=== PATIENT | female | born 1960 | race Caucasian/White ===

== ENCOUNTER 2017-05-10 16:44 | Emergency (ER) | payer BC ==
--- NOTE | 2017-05-10 17:07 | EDM.PDOC ---
ED HPI GENERAL MEDICAL PROBLEM - General Chief Complaint: Genitourinary Problem Stated Complaint: INFECTION Time Seen by Provider: 05/10/17 17:06 Source of Information: Reports: Patient - History of Present Illness INITIAL COMMENTS - FREE TEXT/NARRATIVE: HISTORY AND PHYSICAL: History of present illness: []Patient with 24 hours of dysuria and frequency with urination No fever nausea vomiting chills sweats Review of systems: As per history of present illness and below otherwise all systems reviewed and negative. Past medical history: As per history of present illness and as reviewed below otherwise noncontributory. Surgical history: As per history of present illness and as reviewed below otherwise noncontributory. Social history: No reported history of drug or alcohol abuse. Family history: As per history of present illness and as reviewed below otherwise noncontributory. Physical exam: HEENT: Atraumatic, normocephalic, pupils reactive, negative for conjunctival pallor or scleral icterus, mucous membranes moist, throat clear, neck supple, nontender, trachea midline. Lungs: Clear to auscultation, breath sounds equal bilaterally, chest nontender. Heart: S1S2, regular, negative for clicks, rubs, or JVD. Abdomen: Soft, nondistended, nontender. Negative for masses or hepatosplenomegaly. Negative for costovertebral tenderness. Pelvis: Stable nontender. Genitourinary: Deferred. Rectal: Deferred. Extremities: Atraumatic, negative for cords or calf pain. Neurovascular unremarkable. Neuro: Awake, alert, oriented. Cranial nerves II through XII unremarkable. Cerebellum unremarkable. Motor and sensory unremarkable throughout. Exam nonfocal. Diagnostics: []UA with culture Therapeutics: []Macrobid Impression: []Dysuria UTI Definitive disposition and diagnosis as appropriate pending reevaluation and review of above. Bladder Pain Score (Numeric/FACES): 10 - Related Data Allergies Allergy/AdvReac Type Severity Reaction Status Date / Time codeine Allergy Anaphylactic Verified 06/26/15 11:52 Shock Home Meds: Home Meds Cholecalciferol (Vitamin D3) [Vitamin D3] 1 cap PO DAILY 06/20/15 [History] Cyanocobalamin (Vitamin B-12) [Vitamin B-12] 1 tab PO DAILY 06/20/15 [History] Fish Oil/Borage/Flax/Om3,6,9#1 [[place] 3-6-9 1,200 mg Softgel] 1 tab PO DAILY [History] Herbal Complex No.239 [Whole Body Joint Support] 1 each PO DAILY 06/20/15 [ History] Lisinopril [Prinivil] 1 tab PO DAILY 06/20/15 [History] Magnesium 1 tab PO DAILY 06/20/15 [History] Past Medical History Cardiovascular History: Reports: Hypertension Other Respiratory History: Reports 25 yr history of smoking, currently reduced to 5 cigarettes per day Other Gastrointestinal History: Occas Heartburn treat with OTC Zantac Other OB/BYN History: Last Menses 4 yrs ago Other Musculoskeletal History: hx: Fractures L=5 crush injury '02, 3 compression fractures T 6--8 Other Neuro History: Occasional headaches Other Dermatologic History: Eczema - Infectious Disease History Infectious Disease History: Reports: Chicken Pox, Measles, Mumps - Past Surgical History Other Female Surgeries/Procedures: LEEP , Recent Colposcopy with biopsy TIM II revealed Other Oncologic Surgeries/Procedures: Breast Augmentation with implants Social & Family History - Family History Family Medical History: Noncontributory - Tobacco Use Smoking Status *Q: Current Every Day Smoker Years of Tobacco use: 25 Packs/Tins Daily: 0.5 Used Tobacco, but Quit: Yes Month Tobacco Last Used: january Second Hand Smoke Exposure: Yes - Alcohol Use Days Per Week of Alcohol Use: 0 - Recreational Drug Use Recreational Drug Use: No Drug Use in Last 12 Months: No ED ROS GENERAL - Review of Systems Review Of Systems: ROS reveals no pertinent complaints other than HPI. ED EXAM, GENERAL - Physical Exam Exam: See Below Course - Vital Signs Last Recorded V/S: Last Vital Signs Temp 36.4 C 05/10/17 17:12 Pulse 93 05/10/17 17:12 Resp 18 05/10/17 17:12 BP 129/88 05/10/17 17:12 Pulse Ox 96 05/10/17 17:12 - Orders/Labs/Meds Orders: Active Orders 24 hr Category Date Time Status CULTURE URINE [RM] Stat Lab 05/10/17 16:49 Ordered Labs: Laboratory Tests 05/10/17 Range/Units 17:01 Urine Color YELLOW Urine Appearance CLEAR Urine pH 6.5 (5.0-8.0) Ur Specific [place] <= 1.005 (1.001-1.035) Urine Protein TRACE (NEGATIVE) mg/dL Urine Glucose (UA) NEGATIVE (NEGATIVE) mg/dL Urine Ketones NEGATIVE (NEGATIVE) mg/dL Urine Occult Blood LARGE H (NEGATIVE) Urine Nitrite NEGATIVE (NEGATIVE) Urine Bilirubin NEGATIVE (NEGATIVE) Urine Urobilinogen 0.2 (<2.0) EU/dL Ur Leukocyte Esterase LARGE (NEGATIVE) Urine RBC 3-4 (0-2/HPF) Urine WBC 45-50 (0-5/HPF) Ur Epithelial Cells RARE (NONE-FEW) Urine Bacteria FEW (NEGATIVE) Departure - Departure Time of Disposition: 17:39 Disposition: Home, Self-Care 01 Condition: Good Clinical Impression: UTI, Urinary tract infectious disease - Discharge Information Referrals: Verna Tirado [employer] [Primary Care Provider] - Forms: ED Department Discharge Additional Instructions: Medication as prescribed Return if symptoms persist or worsen or fever nausea vomiting chills sweats despite antibiotics Follow-up with primary care as needed The following information is given to patients seen in the emergency department who are being discharged to home. This information is to outline your options for follow-up care. We provide all patients seen in our emergency department with a follow-up referral. The need for follow-up, as well as the timing and circumstances, are variable depending upon the specifics of your emergency department visit. If you don't have a primary care physician on staff, we will provide you with a referral. We always advise you to contact your personal physician following an emergency department visit to inform them of the circumstance of the visit and for follow-up with them and/or the need for any referrals to a consulting specialist. The emergency department will also refer you to a specialist when appropriate. This referral assures that you have the opportunity for follow-up care with a specialist. All of these measure are taken in an effort to provide you with optimal care, which includes your follow-up. Under all circumstances we always encourage you to contact your private physician who remains a resource for coordinating your care. When calling for follow-up care, please make the office aware that this follow-up is from your recent emergency room visit. If for any reason you are refused follow-up, please contact the [facility] emergency department at and asked to speak to the emergency department charge nurse. - My Orders Last 24 Hours: My Active Orders 05/10/17 16:49 CULTURE URINE [RM] Stat - Assessment/Plan Last 24 Hours: My Active Orders 05/10/17 16:49 CULTURE URINE [RM] Stat
[2017-05-10] MEDS ORDERED: Phenazopyridine 200 MG Tab PO ONE (17:40)
[2017-05-10] MEDS ORDERED: Nitrofurantoin Monohydrate/Macrocrystalline 100 MG Cap PO ONE (17:40)
[2017-05-10 18:34] VITALS: BP 125/80
== END 2017-05-10 18:20 | disposition home or self-care (01) ==
LOC: MW.ED 16:44
DX: N39.0 Urinary tract infection, site not specified (principal); I10 Essential (primary) hypertension; F17.210 Nicotine dependence, cigarettes, uncomplicated; Z98.890 Other specified postprocedural states; Z79.899 Other long term (current) drug therapy; Z88.5 Allergy status to narcotic agent
CPT/HCPCS: 81001; 87086; 87088; 87186; 99283; A9270; 99282

== ENCOUNTER 2018-01-28 15:43 | Emergency (ER) | payer BC ==
[2018-01-28 16:07] VITALS: BP 136/91
[2018-01-28] MEDS ORDERED: Lidocaine 1% 20 ML MDV INJECT ONE (16:41)
--- NOTE | 2018-01-28 17:15 | EDM.PDOC ---
ED HPI GENERAL MEDICAL PROBLEM - General Chief Complaint: Lower Extremity Injury/Pain Stated Complaint: RIGHT LEG CUT Time Seen by Provider: 01/28/18 17:12 Source of Information: Reports: Patient - History of Present Illness INITIAL COMMENTS - FREE TEXT/NARRATIVE: HISTORY AND PHYSICAL: History of present illness: [ Patient presents with a laceration on her right anterior carranza, she was shopping open her car door into her leg developing the laceration which is 5 cm in length crescent shaped simple laceration just gaping bled well initially but no longer bleeding No fever nausea vomiting chills sweats no chest pain shortness breath headache dizziness palpitation no bowel or urine symptoms] Review of systems: As per history of present illness and below otherwise all systems reviewed and negative. Past medical history: As per history of present illness and as reviewed below otherwise noncontributory. Surgical history: As per history of present illness and as reviewed below otherwise noncontributory. Social history: No reported history of drug or alcohol abuse. Family history: As per history of present illness and as reviewed below otherwise noncontributory. Physical exam: HEENT: Atraumatic, normocephalic, pupils reactive, negative for conjunctival pallor or scleral icterus, mucous membranes moist, throat clear, neck supple, nontender, trachea midline. Lungs: Clear to auscultation, breath sounds equal bilaterally, chest nontender. Heart: S1S2, regular, negative for clicks, rubs, or JVD. Abdomen: Soft, nondistended, nontender. Negative for masses or hepatosplenomegaly. Negative for costovertebral tenderness. Pelvis: Stable nontender. Genitourinary: Deferred. Rectal: Deferred. Extremities: Atraumatic, negative for cords or calf pain. Neurovascular unremarkable. Neuro: Awake, alert, oriented. Cranial nerves II through XII unremarkable. Cerebellum unremarkable. Motor and sensory unremarkable throughout. Exam nonfocal. Skin as per history of present illness otherwise unremarkable Diagnostics: [Clinical ] Therapeutics: [ tetanus status is up-to-date Wound is cleansed and explored Lidocaine 5 mL for anesthesia 6 brigitte placed without complication or complaint Standard wound care instructions ] Impression: [ 5 cm laceration crescent shaped simple ] Definitive disposition and diagnosis as appropriate pending reevaluation and review of above. 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) Right Lower Leg Pain Score (Numeric/FACES): 5 - Related Data Allergies Allergy/AdvReac Type Severity Reaction Status Date / Time codeine Allergy Anaphylactic Verified 01/28/18 16:03 Shock Home Meds: Home Meds Cholecalciferol (Vitamin D3) [Vitamin D3] 1 cap PO DAILY 06/20/15 [History] Cyanocobalamin (Vitamin B-12) [Vitamin B-12] 1 tab PO DAILY 06/20/15 [History] Fish Oil/Borage/Flax/Om3,6,9#1 [[place] 3-6-9 1,200 mg Softgel] 1 tab PO DAILY [History] Herbal Complex No.239 [Whole Body Joint Support] 1 each PO DAILY 06/20/15 [ History] Lisinopril [Prinivil] 1 tab PO DAILY 06/20/15 [History] Magnesium 1 tab PO DAILY 06/20/15 [History] Past Medical History Cardiovascular History: Reports: Hypertension Other Respiratory History: Reports 25 yr history of smoking, currently reduced to 5 cigarettes per day Other Gastrointestinal History: Occas Heartburn treat with OTC Zantac 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 ago Other Musculoskeletal History: hx: Fractures L=5 crush injury '02, 3 compression fractures T 6-7-8 Other Neuro History: Occasional headaches Other Dermatologic History: Eczema - Infectious Disease History Infectious Disease History: Reports: None - Past Surgical History Other Female Surgeries/Procedures: LEEP '2009, Recent Colposcopy with biopsy TIM II revealed Other Oncologic Surgeries/Procedures: Breast Augmentation with implants Social & Family History - Family History Family Medical History: Noncontributory - Tobacco Use Smoking Status *Q: Current Every Day Smoker Years of Tobacco use: 30 Packs/Tins Daily: 0.3 - Caffeine Use Caffeine Use: Reports: Coffee - Recreational Drug Use Recreational Drug Use: No Review of Systems - Review of Systems Review Of Systems: See Below ED EXAM, GENERAL - Physical Exam Exam: See Below Course - Vital Signs Last Recorded V/S: Last Vital Signs Temp 97.9 F 01/28/18 16:05 Pulse 90 01/28/18 16:05 Resp 18 01/28/18 16:05 BP 136/91 H 01/28/18 16:05 Pulse Ox 96 01/28/18 16:05 - Orders/Labs/Meds Meds: Medications Discontinued Medications Generic Name Dose Route Start Last Admin Trade Name Rainer PRN Reason Stop Dose Admin Lidocaine HCl Confirm 01/28/18 17:04 Xylocaine-Mpf 1% Administered 01/28/18 17:05 Dose 5 mls @ as directed .ROUTE .STK-MED ONE Lidocaine HCl 20 ml 01/28/18 16:41 Xylocaine 1% INJECT 01/28/18 16:42 ONETIME ONE Lidocaine HCl 5 ml 01/28/18 16:41 01/28/18 16:48 Xylocaine-Mpf 1% INJECT 01/28/18 16:42 5 ml ONETIME ONE Administration Lidocaine HCl 5 ml 01/28/18 17:04 Xylocaine-Mpf 1% INJECT 01/28/18 17:05 ONETIME ONE Departure - Departure Time of Disposition: 17:14 Disposition: Home, Self-Care 01 Condition: Good Clinical Impression: Laceration - Discharge Information Referrals: Verna Tirado, [employer] [Primary Care Provider] - Additional Instructions: Standard wound care instruction as provided Keep wound clean and dry for 48 hours Medication as directed brigitte out in 10 days Return if redness warmth or pus drainage should this develop The following information is given to patients seen in the emergency department who are being discharged to home. This information is to outline your options for follow-up care. We provide all patients seen in our emergency department with a follow-up referral. The need for follow-up, as well as the timing and circumstances, are variable depending upon the specifics of your emergency department visit. If you don't have a primary care physician on staff, we will provide you with a referral. We always advise you to contact your personal physician following an emergency department visit to inform them of the circumstance of the visit and for follow-up with them and/or the need for any referrals to a consulting specialist. The emergency department will also refer you to a specialist when appropriate. This referral assures that you have the opportunity for follow-up care with a specialist. All of these measure are taken in an effort to provide you with optimal care, which includes your follow-up. Under all circumstances we always encourage you to contact your private physician who remains a resource for coordinating your care. When calling for follow-up care, please make the office aware that this follow-up is from your recent emergency room visit. If for any reason you are refused follow-up, please contact the [facility] emergency department at and asked to speak to the emergency department charge nurse.
[2018-01-28] MEDS ORDERED: Bacitracin Oint 1 GM U/D Packet TOP ONE (17:23)
== END 2018-01-28 17:35 | disposition home or self-care (01) ==
LOC: MW.ED 15:43
DX: S81.811A Laceration without foreign body, right lower leg, initial encounter (principal); I10 Essential (primary) hypertension; F17.210 Nicotine dependence, cigarettes, uncomplicated; Z88.5 Allergy status to narcotic agent; Z79.899 Other long term (current) drug therapy; W22.8XXA Striking against or struck by other objects, initial encounter
CPT/HCPCS: 99282

== ENCOUNTER 2018-02-09 16:32 | Emergency (ER) | payer BC ==
[2018-02-09 16:47] VITALS: BP 132/89
== END 2018-02-09 16:49 | disposition left against medical advice (07) ==
LOC: MW.ED 16:32
DX: Z53.21 Procedure and treatment not carried out due to patient leaving prior to being seen by health care provider (principal)

== ENCOUNTER 2021-09-01 10:34 | Emergency (ER) | payer BC ==
[2021-09-01] MEDS ORDERED: Acetaminophen/oxyCODONE 325-5 MG Tab PO ONE (10:55)
[2021-09-01 12:01] VITALS: BP 150/85; PULSE 75
== END 2021-09-01 11:57 | disposition home or self-care (01) ==
LOC: MW.ED 10:34
DX: S89.91XA Unspecified injury of right lower leg, initial encounter (principal); M25.461 Effusion, right knee; I10 Essential (primary) hypertension; Z88.5 Allergy status to narcotic agent; Z79.899 Other long term (current) drug therapy; Z72.0 Tobacco use; W01.0XXA Fall on same level from slipping, tripping and stumbling without subsequent striking against object, initial encounter
CPT/HCPCS: 73562; 99283; A9270

== ENCOUNTER 2022-11-06 15:22 | Emergency (ER) | payer BC ==
[2022-11-06] MEDS ORDERED: Sodium Chloride 0.9% 2.5 ML Syringe FLUSH PRN (15:59)
[2022-11-06] MEDS ORDERED: Sodium Chloride 0.9% 10 ML Syringe FLUSH PRN (15:59)
[2022-11-06 16:35] LABS: CARBON DIOXIDE,CO2 28.4 mmol/L (21.0-32.0); POTASSIUM,K 3.9 mmol/L (3.5-5.1)
[2022-11-06 16:53] LABS: CORONAVIRUS COVID-19 NAA NEGATIVE (NEGATIVE); INFLUENZA A NAA NEGATIVE (NEGATIVE); INFLUENZA B NAA NEGATIVE (NEGATIVE)
[2022-11-06 17:30] VITALS: BP 159/105; PULSE 70
== END 2022-11-06 17:34 | disposition home or self-care (01) ==
LOC: MW.ED 15:22
DX: R07.9 Chest pain, unspecified (principal); E78.5 Hyperlipidemia, unspecified; I10 Essential (primary) hypertension; F41.9 Anxiety disorder, unspecified; D75.89 Other specified diseases of blood and blood-forming organs; Z88.5 Allergy status to narcotic agent; Z20.822 Contact with and (suspected) exposure to COVID-19; Z79.899 Other long term (current) drug therapy
CPT/HCPCS: 0240U; 36415; 71045; 80053; 83735; 84484; 85025; 93005; 99285; J3490; 93010; 99283

== ENCOUNTER 2025-03-29 11:53 | Emergency (ER) | payer BC ==
[2025-03-29 12:54] LABS: MEAN PLATELET VOLUME 9.5 fL (9.4-12.3); NRBC PERCENT 0.0 /100WBC (0.0-0.2); PLATELET COUNT,PLT 213 K/uL (150-400); RED BLOOD CELL COUNT 4.02 M/uL (4.10-5.30); WHITE BLOOD CELL COUNT,WBC 7.81 K/uL (3.9-11.3)
[2025-03-29 13:05] LABS: A/G RATIO 1.1 (0.9-1.6); ALANINE AMINOTRANSFERASE,ALT 42.0 IU/L (14-63); ASPARTATE AMNIOTRANSFERASE,AST 33.0 IU/L (15-37); BILIRUBIN TOTAL 0.4 mg/dL (0.2-1.0); BLOOD UREA NITROGEN,BUN 12.0 mg/dL (7.0-18.0); CARBON DIOXIDE,CO2 28.5 mmol/L (21.0-32.0); CHLORIDE,CL 100.0 mmol/L (98-107); CREATININE 0.7 mg/dL (0.6-1.0); EST CRCL DRUG DOSING (CG) 85.41 mL/min; GLUCOSE RANDOM 122.0 mg/dL (74-106); POTASSIUM,K 3.9 mmol/L (3.5-5.1); PROTEIN TOTAL,TP 7.3 g/dL (6.4-8.2); SODIUM,NA 137.0 mmol/L (136-145)
[2025-03-29 13:08] LABS: ESTIMATED GFR 97.0 mL/min (>60)
[2025-03-29] MEDS ORDERED: Sodium Chloride 0.9% 2.5 ML Syringe FLUSH PRN (13:16)
[2025-03-29] MEDS ORDERED: Sodium Chloride 0.9% 10 ML Syringe FLUSH PRN (13:16)
[2025-03-29] MEDS: Nitroglycerin 0.4 MG Tab.SL SL PRN (13:40)
[2025-03-29] MEDS: Heparin Sodium/0.45% NaCl 25,000 UNITS/250 ML BAG IV SCH (13:41)
[2025-03-29] MEDS: Heparin Sodium 5,000 Units/ML Vial IVPUSH ONE (13:41)
[2025-03-29 13:47] LABS: INR 0.94 (0.86-1.11); PTT,PARTIAL THROMBOPLSTIN TIME 23.0 SEC (23.9-30.7); SEG NEUTROPHILS ABSOLUTE MAN 5.70 K/uL (1.80-7.70); SEG NEUTROPHILS PERCENT MAN 73 % (41-71)
[2025-03-29 13:48] LABS: BASOPHILS ABSOLUTE MAN 0.08 K/uL (0.00-0.20); BASOPHILS PERCENT MAN 1 % (0-1); EOSINOPHILS ABSOLUTE MAN 0.08 K/uL (0.00-0.45); EOSINOPHILS PERCENT MAN 1 % (0-6); LYMPHOCYTES ABSOLUTE MAN 1.72 K/uL (1.00-4.80); LYMPHOCYTES PERCENT MAN 22 % (24-44); MONOCYTES ABSOLUTE MAN 0.23 K/uL (0.00-0.80); MONOCYTES PERCENT MAN 3 % (0-8)
[2025-03-29 13:53] VITALS: BP 146/92
[2025-03-29] MEDS: Nitroglycerin 2% Oint 1 GM UD Packet TOP ONE (13:58)
[2025-03-29 14:22] VITALS: PULSE 80
[2025-04-02 17:02] LABS: HEPARIN ANTI-XA,LMWH 1.1 U/mL (0.50-1.10)
== END 2025-03-29 15:04 ==
LOC: MW.ED 11:53
DX: I21.4 Non-ST elevation (NSTEMI) myocardial infarction (principal); I24.9 Acute ischemic heart disease, unspecified; I10 Essential (primary) hypertension; E78.00 Pure hypercholesterolemia, unspecified; Z90.710 Acquired absence of both cervix and uterus; Z79.899 Other long term (current) drug therapy; Z88.5 Allergy status to narcotic agent; Z87.891 Personal history of nicotine dependence
CPT/HCPCS: 36415; 71046; 80053; 83735; 84484; 85007; 85027; 85520; 85610; 85730; 93005; 96365; 99285; A9270; J1644